=== PATIENT | female | born 1990 | race African-American/Black ===

== ENCOUNTER 2016-10-06 00:09 | Emergency (ER) | payer MEDICAID ==
[~2016-10-06] VITALS: Ht 172.7 cm; Wt 146.0 kg
[2016-10-06] MEDS ORDERED: LORAZEPAM 0.5MG TABLET PO ONE (01:45)
[2016-10-06] MEDS ORDERED: KETOROLAC 60MG/2ML VIAL IM ONE (01:45)
[2016-10-06] MEDS ORDERED: DEXAMETHASONE 10MG/ML 1ML VIAL IM SCH (01:45)
[2016-10-06 01:56] VITALS: BP 135/81
== END 2016-10-07 02:00 | disposition home or self-care (01) ==
LOC: ER 09:13
DX: M54.6 Pain in thoracic spine (principal)
CPT/HCPCS: 81025; 96372; 99284; J1100; J1885